=== PATIENT | male | born 1980 | race Caucasian/White ===

== ENCOUNTER 2022-08-04 05:47 | Observation (INO) ==
[2022-08-04] MEDS ORDERED: ACETAMINOPHEN 325 MG TABLET PO PRN (06:31)
[2022-08-04] MEDS ORDERED: ONDANSETRON 4 MG/2 ML VIAL IV PRN ×2 (06:31→10:33)
[2022-08-04] MEDS ORDERED: HYDROmorphone 1 MG/1 ML SYRINGE IV PRN ×2 (06:31→10:33)
[2022-08-04] MEDS ORDERED: SCOPOLAMINE 1.5 MG PATCH TRANSDERM ONE (06:58)
[2022-08-04] MEDS ORDERED: DEXTROSE 5% LACTATED RINGERS 1,000 ML IV SCH (07:00)
[2022-08-04] MEDS ORDERED: ALBUTEROL 2.5 MG/3 ML NEB RESP TX STA (07:10)
[2022-08-04] MEDS ORDERED: LIDOCAINE 1%/EPI INJ 20 ML VIAL ONE (09:18)
[2022-08-04] MEDS ORDERED: fentaNYL 100 MCG/2 ML VIAL ONE (09:20)
[2022-08-04] MEDS ORDERED: SUCCINYLCHOLINE 200 MG/10 ML VIAL ONE (09:29)
[2022-08-04] MEDS ORDERED: ONDANSETRON 4 MG/2 ML VIAL ONE (09:32)
[2022-08-04] MEDS ORDERED: DESFLURANE 1 UNIT/15 MINUTE INH ONE (09:32)
[2022-08-04] MEDS ORDERED: LIDOCAINE 2% 5 ML VIAL ONE (09:32)
[2022-08-04] MEDS ORDERED: propofoL 200 MG/20 ML VIAL IV ONE ×2 (09:32→10:08)
[2022-08-04] MEDS ORDERED: PHENYLEPHRINE 1 MG/10 ML SYRINGE IV ONE (09:40)
[2022-08-04] MEDS ORDERED: TISSUE ADHESIVE 1 EACH APPLICATOR TOP ONE (10:02)
[2022-08-04] MEDS ORDERED: GLYCOPYRROLATE 0.4 MG/2 ML VIAL ONE (10:02)
[2022-08-04] MEDS ORDERED: NEOSTIGMINE 10 MG/10 ML VIAL ONE (10:02)
[2022-08-04] MEDS ORDERED: KETOROLAC 30 MG/1 ML VIAL ONE (10:20)
[2022-08-04] MEDS ORDERED: PIPERACILLIN/TAZOBACTAM 3,375 MG in SODIUM CHLORIDE 0.9% 100 ML IV SCH (12:30)
[2022-08-04 15:26] VITALS: BP 124/81
[2022-08-05] MEDS ORDERED: ENOXAPARIN 40 MG/0.4 ML SYRINGE SUBCUT SCH (06:00)
[2022-08-05] MEDS ORDERED: ROSUVASTATIN 20 MG TABLET PO SCH (09:00)
[2022-08-05] MEDS ORDERED: hydroCHLOROthiazide 25 MG TABLET PO SCH (09:00)
[2022-08-05] MEDS ORDERED: OLMESARTAN 20 MG TABLET PO SCH (09:00)
[2022-08-05] MEDS ORDERED: hydroCHLOROthiazide 12.5 MG CAPSULE PO SCH (09:00)
== END 2022-08-04 15:00 | disposition home or self-care (01) ==
LOC: EDUNIT# → EDBD → N.ED 05:47 → INTOOBSV 06:31 → N.EDINP 06:31 → N.3E 11:17 → N.SDSINP 11:48
PROVIDERS: ADMIT Surgery; ATTEND Surgery